=== PATIENT | male | born 1995 | race Caucasian/White ===

== ENCOUNTER 2018-10-23 15:02 | Day surgery (SDC) | payer BC, OTHER ==
[2018-10-23] MEDS ORDERED: Lactated Ringers 1,000 ML IV SCH (17:00)
--- NOTE | 2018-10-23 17:00 | PCM.PREANE ---
Preanesthetic Assessment - Anesthesia/Transfusion/Family Hx Anesthesia History: Prior Anesthesia Without Reaction Family History of Anesthesia Reaction: No Transfusion History: No Prior Transfusion(s) Intubation History: Unknown - Review of Systems General: No Symptoms Pulmonary: No Symptoms (Asthma no inhalers since age of 14./ETOH on weekends) Cardiovascular: No Symptoms Gastrointestinal: No Symptoms, Nausea Neurological: No Symptoms Other: Reports: Sinus Problem (seasonal allergies) - Physical Assessment NPO Status Date: 10/22/18 NPO Status Time: 20:00 Pulse: 60 O2 Sat by Pulse Oximetry: 99 Respiratory Rate: 16 Blood Pressure: 144/87 Temperature: 35.8 C Vital Signs: Last Vital Signs Temp 35.8 C 10/23/18 15:41 Pulse 60 10/23/18 15:41 Resp 16 10/23/18 15:41 BP 144/87 H 10/23/18 15:41 Pulse Ox 99 10/23/18 15:41 Height: 1.83 m Weight: 80.739 kg ASA Class: 1E Mental Status: Alert & Oriented x3 Airway Class: Mallampati = 2 Dentition: Reports: Normal Dentition, Caries Thyro-Mental Finger Breadths: 3 Mouth Opening Finger Breadths: 3 ROM/Head Extension: Full Lungs: Clear to Auscultation, Normal Respiratory Effort Cardiovascular: Regular Rate, Regular Rhythm, No Murmurs - Allergies Allergies/Adverse Reactions: Allergies Allergy/AdvReac Type Severity Reaction Status Date / Time Penicillins Allergy Hives Verified 10/23/18 15:43 - Anesthesia Plan Pre-Op Medication Ordered: None - Acknowledgements Anesthesia Type Planned: General Anesthesia Pt an Appropriate Candidate for the Planned Anesthesia: Yes Alternatives and Risks of Anesthesia Discussed w Pt/Guardian: Yes Pt/Guardian Understands and Agrees with Anesthesia Plan: Yes PreAnesthesia Questionnaire - Past Health History Medical/Surgical History: Denies Medical/Surgical History - SUBSTANCE USE Smoking Status *Q: Never Smoker Second Hand Smoke Exposure: No Recreational Drug Use History: No - HOME MEDS Home Medications: Home Meds Cetirizine [ZyrTEC] 10 mg PO DAILY PRN 10/23/18 [History]
[2018-10-23] MEDS ORDERED: Succinylcholine/Normal Saline 100 MG/5 ML Syringe ONE (17:12)
[2018-10-23] MEDS ORDERED: Ketorolac 30 MG/ML SDV ONE (17:12)
[2018-10-23] MEDS ORDERED: Ondansetron 4 MG/2 ML SDV ONE (17:12)
[2018-10-23] MEDS ORDERED: Lactated Ringers 1,000 ML ONE (17:12)
[2018-10-23] MEDS ORDERED: HYDROmorphone 0.5 MG/0.5 ML Syringe ONE (17:12)
[2018-10-23] MEDS ORDERED: Dexamethasone 4 MG/ML 5 ML MDV ONE (17:12)
[2018-10-23] MEDS ORDERED: Lidocaine 1% 6 ML ONE (17:12)
[2018-10-23] MEDS ORDERED: Rocuronium 50 MG/5 ML Vial ONE (17:12)
[2018-10-23] MEDS ORDERED: Midazolam 1 MG/ML 2 ML SDV ONE (17:13)
[2018-10-23] MEDS ORDERED: fentaNYL 250 MCG/5 ML SDV ONE (17:13)
[2018-10-23] MEDS ORDERED: Propofol 200 MG/20 ML SDV ONE (17:13)
[2018-10-23] MEDS ORDERED: Bupivacaine 0.5% 30 ML SDV ONE (17:26)
[2018-10-23] MEDS ORDERED: Albuterol 0.083% 2.5 MG/3 ML Neb Soln NEB PRN (18:10)
[2018-10-23] MEDS ORDERED: HYDROmorphone 0.5 MG/0.5 ML Syringe IVPUSH PRN (18:10)
[2018-10-23] MEDS ORDERED: Ondansetron 4 MG/2 ML SDV IVPUSH PRN (18:10)
[2018-10-23] MEDS ORDERED: ePHEDrine 50 MG/ML SDV IVPUSH PRN (18:10)
[2018-10-23] MEDS ORDERED: diphenhydrAMINE 50 MG/ML SDV IVPUSH PRN (18:10)
[2018-10-23] MEDS ORDERED: Neostigmine Methylsulfate 1 MG/ML 5 ML Syringe ONE (18:14)
[2018-10-23] MEDS ORDERED: Phenylephrine 1 MG in Sodium Chloride 0.9% 10 ML IV SCH (18:15)
[2018-10-23] MEDS ORDERED: Morphine 2 MG/ML Syringe IVPUSH PRN (18:48)
[2018-10-23] MEDS ORDERED: oxyCODONE 5 MG Tab PO PRN (18:50)
[2018-10-23] MEDS ORDERED: Ibuprofen 800 MG Tab PO PRN (18:51)
[2018-10-23] MEDS ORDERED: Enoxaparin 40 MG/0.4 ML Syringe SUBCUT ONE (18:51)
[2018-10-23] MEDS ORDERED: Loratadine 10 MG Tab PO PRN (18:53)
[2018-10-23] MEDS ORDERED: D5 1/2 NS w/ 10 mEq/L KCl 1,000 ML IV SCH (19:00)
[2018-10-23] MEDS: fentaNYL 100 MCG/2 ML SDV IVPUSH PRN ×2 (19:10→19:36)
--- NOTE | 2018-10-23 19:12 | PCM.POSTAN ---
POST ANESTHESIA ASSESSMENT - MENTAL STATUS Mental Status: Alert - VITAL SIGNS Pulse Rate: 90 SaO2: 98 Resp Rate: 16 Blood Pressure: 134/64 Temperature: 36.6 C - RESPIRATORY Respiratory Status: Respiratory Rate WNL, Airway Patent, O2 Saturation Stable - CARDIOVASCULAR CV Status: Pulse Rate WNL, Blood Pressure Stable - GASTROINTESTINAL GI Status: No Symptoms - POST OP HYDRATION Hydration Status: Adequate & Stable
--- NOTE | 2018-10-23 19:14 | PCM48HPAN ---
Post Anesthesia Note - EVALUATION WITHIN 48HRS OF ANESTHETIC Vital Signs in Normal Range: Yes Patient Participated in Evaluation: Yes Respiratory Function Stable: Yes Airway Patent: Yes Cardiovascular Function Stable: Yes Hydration Status Stable: Yes Pain Control Satisfactory: Yes Nausea and Vomiting Control Satisfactory: Yes Mental Status Recovered: Yes
--- NOTE | 2018-10-23 23:28 | HP ---
DATE OF ADMISSION: 10/23/2018 ADMITTING DIAGNOSIS: Acute appendicitis with localized peritonitis. HISTORY OF PRESENT ILLNESS: The patient is a 23-year-old male who was in his normal state of health up until Friday, three days ago when he developed generalized abdominal pain. This seems to have settled in the right lower quadrant. It is worsened by ambulation. He rates the pain at 7/10 in intensity. He denies any shaking chills, fever, nausea, vomiting, diarrhea, constipation, bloody stools. His only other complaint was anorexia. He had no appetite this morning. His last meal was last night. He has only had sips of clear liquids this morning, cefoxitin 2 g. The patient presented to the ED this morning around 11 o'clock over in [place]. He was worked up across the street. He had no leukocytosis. His labs were quite unremarkable. However, his persistent pain prompted a CT scan. Surprisingly, the CT demonstrated acute appendicitis with [id number]-ic-[id number] appendiceal enlargement at 1.3 cm and mild diffuse wall thickening and surrounding periappendiceal inflammation laterally. There is no evidence of rupture, although suggests acute appendicitis with localized peritonitis. I was notified of the diagnosis and the existence of the patient by the [facility]. He was transferred over at my request for higher level of care. The patient does not appear toxic. PAST MEDICAL HISTORY: Seasonal allergies. PAST SURGICAL HISTORY: None. ALLERGIES: To medications, none. CURRENT MEDICATIONS: He takes Zyrtec 10 mg p.o. daily for seasonal allergies. REVIEW OF SYSTEMS: A 10-system review is completely negative. He is otherwise completely healthy young man who plays football. FAMILY HISTORY: Notable for a blood dyscrasia in a second-degree relative, hypertension, and diabetes. PHYSICAL EXAMINATION: GENERAL: He is alert. He does not appear toxic, in no obvious distress. VITAL SIGNS: Here are within normal limits. HEAD AND NECK: Normocephalic, atraumatic. He is anicteric. LUNGS: Clear to auscultation bilaterally. HEART: Regular rate and rhythm. No clicks, murmurs, or rubs. ABDOMEN: Soft. He has mild tenderness in the right lower quadrant with a negative Rovsing sign. Negative Psoas sign. Negative obturator sign. No hernias. No palpable masses. EXTREMITIES: No clubbing, cyanosis, or edema. No calf tenderness. INTEGUMENT: No rashes. No lesions. No petechiae. No diaphoresis. NEUROLOGIC: Cranial nerves are grossly intact. Nonfocal. Moving all 4 extremities with sensation is preserved. PSYCHIATRIC: He has appropriate affect and demeanor. LABORATORY DATA: His lab work showed no leukocytosis with a white cell count of 6500, hemoglobin , platelets 256, and his differential appears normal. Chemistries are all completely within normal limits. I did look at his CT report. I unfortunately could not view the scan. This does demonstrate a thickened inflamed appendix measuring 1.3 cm with periappendiceal fat stranding all consistent with acute appendicitis with periappendiceal inflammation consistent with a localized peritonitis. ASSESSMENT: Acute appendicitis with localized peritonitis. PLAN: I have discussed with him at length the major risks, benefits, and alternative of an appendectomy. I have offered him a laparoscopic appendectomy with the possibility of an open procedure. Risks include, but are not limited to, perforation of the bowel, bleeding, risks of anesthesia, possibly further surgery, staple line failure, abscess formation, reoperation, hernias of the port sites, and many others. He gave informed consent. MMODAL /[id number]
--- NOTE | 2018-10-23 23:52 | OR ---
DATE OF OPERATION: 10/23/2018 SURGEON: Gavin Ibarra MD PREOPERATIVE DIAGNOSIS: Acute appendicitis with localized peritonitis. POSTOPERATIVE DIAGNOSIS: Acute appendicitis with localized peritonitis. OPERATION PERFORMED: Laparoscopic appendectomy. COMPLICATIONS: None. ESTIMATED BLOOD LOSS: Less than 5 mL. FINDINGS: He had a distended thickened inflamed appendix with localized peritonitis consistent with acute appendicitis with localized peritonitis. No other pathology was identified. PATHOLOGY: Appendix. ANESTHESIA: General with endotracheal intubation. DISPOSITION: Stable at the end of procedure. INDICATION: The patient is a 23-year-old male who presented with acute appendicitis. He had a workup over in [place], was transferred here. He got a dose of preoperative antibiotics. A thorough discussion was held regarding the risks, benefits, and alternatives. He gave informed consent to what was done. DESCRIPTION OF PROCEDURE: The patient was brought to the operating room, placed in a supine position on the operating table. He was given general anesthesia and intubated. The abdomen was prepped and draped in usual sterile fashion. A Veress needle was inserted in the left upper quadrant and abdominal insufflation was undertaken to a pressure of 15 mmHg with CO2 gas. I introduced a 12 mm optical port in the left lower quadrant. I visualized the tissue planes as the port passed into the peritoneum. There was no contact to underlying bowel. A 5 mm 30-degree scope was used for the purpose of inserting the port and for the operation. I identified the Veress needle in the left upper quadrant with no contact to underlying bowel. This was removed. The gas was switched to the existing port. I passed 2 additional 5 mm ports, one in the suprapubic region and one in the umbilicus in Trendelenburg position with the right side up, identified the appendix. The appendix was obviously inflamed as noted above. A window was created in the mesoappendix and a linear cutter stapler was passed through the mesoappendix to transect the appendix at its exit from the cecum. The appendiceal artery and the mesoappendix were controlled between surgical clips and then transected. At this point, the appendix was placed in an EndoCatch bag and retrieved through the 12 mm port site inside the bag. I then changed my gloves. I then passed a 0 Vicryl stitch across the port with a KaciAlem stitch passer under direct laparoscopic visualization. This completely obliterated the fascial defect at that location. I inspected the pelvis and found no purulence. The right lower quadrant was inspected. There was no bleeding. The staple line was intact and the clips were still in place obstructing the mesoappendix. There was an essentially no blood in the operative field. All the ports were opened. The ports were used to desufflate the gas and then finally the ports were removed. Each of the incisions was reapproximated with 4-0 Monocryl suture material. Dermabond was applied for sterile barrier. He had no complications and tolerated the procedure well. He was awakened from anesthesia and moved back to recovery in stable condition. PLAN: This will constitute his discharge summary. He will be kept for several hours for extended stay observation and then discharged when his pain medication is no longer required, and he can tolerate his pain just with p.o. Tylenol or ibuprofen, and he is ambulating and tolerating regular food. ALLAN /[id number]
[2018-10-24] MEDS: Acetaminophen 325 MG Tab PO PRN ×2 (01:58→08:58)
== END 2018-10-24 09:06 | disposition home or self-care (01) ==
LOC: JD.ED 15:02 → JD.SDS 17:19 → JD.MS 21:00 → JD.SDS 10-24 09:06
PROVIDERS: ATTEND Surgery
DX: K35.30 Acute appendicitis with localized peritonitis, without perforation or gangrene (principal); J45.909 Unspecified asthma, uncomplicated; Z88.0 Allergy status to penicillin; Z79.899 Other long term (current) drug therapy
CPT/HCPCS: 44970; 99284; A9270; J0330; J0694; J1100; J1170; J1650; J1885; J2001; J2250; J2270; J2405; J2704; J2710; J3010; J3480; J3490; J7120; 00840

== ENCOUNTER 2018-11-11 08:33 | Emergency (ER) | payer BC, OTHER ==
--- NOTE | 2018-11-11 09:33 | EDM.PDOC ---
ED HPI GENERAL MEDICAL PROBLEM - General Chief Complaint: Abdominal Pain Stated Complaint: ABDOMINAL PAIN,VOMITIING POST APPENDIX REMOVAL Time Seen by Provider: 11/11/18 09:28 Source of Information: Reports: Patient, Family History Limitations: Reports: No Limitations - History of Present Illness INITIAL COMMENTS - FREE TEXT/NARRATIVE: 23-year-old male presents to the ED with acute onset of periumbilical abdominal cramping pain this morning. States he got up around 5:30 to go to work 8 some toast and some food snacks and had some fluids and felt good. Work and was on the more when he started developed severe periumbilical abdominal pain to the point that it forced him to stop working. He then vomited 2 lost his breakfast and bilious emesis 1. No hematemesis. Pain was strongly colicky or coming and going and is now much improved compared to what it was. He had his appendix out about 2 weeks ago laparoscopically and states his bowel function seemed to return to normal. He has not been using any pain medication for about one week. No previous abdominal surgery. No fever no chills. Onset: Today Onset Date: 11/11/18 Onset Time: 07:45 Duration: Minutes: Location: Reports: Abdomen (Diffuse periumbilical cramping pain.) Quality: Reports: Sharp, Stabbing, Other Severity: Severe (Strong colicky component to the pain.) Improves with: Reports: Other (Improves spontaneously perhaps better after vomiting.) Worsens with: Reports: None Context: Reports: Other (Spontaneous occurrence while working this morning.). Denies: Activity, Exercise, Lifting, Sick Contact, Trauma Associated Symptoms: Reports: Loss of Appetite, Nausea/Vomiting, Weakness, Other. 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 Off pain medication for one week) Social & Family History - Caffeine Use Caffeine Use: Reports: None - Living Situation & Occupation Living situation: Reports: Single Occupation: Employed ED ROS GENERAL - Review of Systems Review Of Systems: See Below Constitutional: Reports: Decreased Appetite. Denies: Fever, Chills, Malaise, Weakness, Fatigue, Weight Loss HEENT: Reports: No Symptoms (At present but he ate a normal breakfast.) Respiratory: Reports: No Symptoms Cardiovascular: Reports: No Symptoms Endocrine: Reports: No Symptoms GI/Abdominal: Reports: Abdominal Pain (See history of present illness.), Nausea , Vomiting : Reports: No Symptoms (Vomited 2 this morning due to the intensity of the abdominal pain.) Musculoskeletal: Reports: No Symptoms Skin: Reports: No Symptoms Neurological: Reports: Dizziness (Coy dizzy and lightheaded and near syncope when the pain was very intense.) Psychiatric: Reports: No Symptoms Hematologic/Lymphatic: Reports: No Symptoms Immunologic: Reports: No Symptoms ED EXAM, GI/ABD - Physical Exam Exam: See Below Exam Limited By: No Limitations General Appearance: Alert, WD/WN, Mild Distress Eyes: Bilateral: Normal Appearance (No sclerae icterus. No pallor) Throat/Mouth: Normal Inspection, Normal Lips, Normal Teeth, Normal Oropharynx Neck: Normal Inspection, Supple, Non-Tender, Full Range of Motion. No: Lymphadenopathy (R) Respiratory/Chest: No Respiratory Distress, Lungs Clear, Normal Breath Sounds, No Accessory Muscle Use, Chest Non-Tender Cardiovascular: Normal Peripheral Pulses, Regular Rate, Rhythm, No Edema, No Gallop, No Murmur, No Rub GI/Abdominal Exam: Soft, Non-Tender, No Organomegaly, No Abnormal Bruit, No Mass , Pelvis Stable (I believe I can palpate his right hemicolon and left hemicolon and rolled him on exam.), Abnormal Bowel Sounds (Bowel sounds are mildly hyperactive throughout the abdomen.), Other (Abdominal wall is firm as he is well muscled. Appendectomy wounds have healed well. No signs of infection.) (Male) Exam: No Hernia Back Exam: Normal Inspection, Full Range of Motion. No: CVA Tenderness (L), CVA Tenderness (R) Extremities: Normal Inspection, Normal Range of Motion, Non-Tender Neurological: Alert, Oriented, CN II-XII Intact, Normal Cognition, Normal Gait Psychiatric: Normal Affect, Normal Mood Skin Exam: Warm, Dry, Intact, Normal Color, No Rash Course - Vital Signs Last Recorded V/S: Last Vital Signs Temp 36.8 C 11/11/18 08:50 Pulse 63 11/11/18 08:50 Resp 16 11/11/18 08:50 BP 134/77 11/11/18 08:50 Pulse Ox 98 11/11/18 08:50 - Orders/Labs/Meds Meds: Medications Discontinued Medications Generic Name Dose Route Start Last Admin Trade Name Hakeem PRN Reason Stop Dose Admin Dicyclomine HCl 20 mg 11/11/18 10:10 11/11/18 10:28 Bentyl PO 11/11/18 10:11 20 mg ONETIME ONE Administration Magnesium Citrate 210 ml 11/11/18 10:09 11/11/18 10:28 Citrate Of Magnesia PO 11/11/18 10:10 210 ml ONETIME ONE Administration - Radiology Interpretation Free Text/Narrative:: 23-year-old male presents to the ED with acute onset of diffuse periumbilical abdominal pain. Nausea and vomiting 2 this morning. When he woke this morning he felt fine. He had a normal breakfast for him. He was at work when he developed severe periumbilical cramping pain that precipitated the nausea and vomiting. States the pain for a while was an 8-9 minutes 10 is now up. He reports pain is down to 1 or 2 at the time my examination. Exam reveals a benign abdomen with very active bowel sounds in all 4 quadrants. Appendectomy wounds done 2 weeks ago are healing well. I believe I can palpate both the right and left hemicolon. Suspect constipation from narcotic pain medication and then being off food for a period of time. Plan KUB to be done. - Re-Assessments/Exams Free Text/Narrative Re-Assessment/Exam: 11/11/18 09:49 KUB confirms clinical suspicion of constipation. There is increased stool throughout the right hemicolon the transverse colon in the upper descending colon. The rectal vault itself is fairly empty. Plan I will have him take 7 ounces of magnesium citrate with 6 ounces of juice by mouth to provide bowel cleanse. Anus started to come back a bit. I will give him Bentyl 20 mg by mouth to help alleviate abdominal cramping pain. He will be excused from work for the rest of the day and in no will be given in this regard. He eat and drink per normal. Departure - Departure Time of Disposition: 10:10 Disposition: Home, Self-Care 01 Condition: Fair Clinical Impression: Constipation by delayed colonic transit Abdominal pain Qualifiers: Abdominal location: periumbilical Qualified Code(s): R10.33 - Periumbilical pain - Discharge Information *PRESCRIPTION DRUG MONITORING PROGRAM REVIEWED*: Not Applicable *COPY OF PRESCRIPTION DRUG MONITORING REPORT IN PATIENT EDU: Not Applicable Instructions: Constipation, Adult Referrals: PCP,None [Primary Care Provider] - Forms: ED Department Discharge, ED Return to Work/School Form Additional Instructions: Evaluation the emergency room this morning in regards to development of severe periumbilical abdominal cramping pain this morning while at work. Pain is eased up a good deal by the time you were seen in the ED. However the pain was bad enough to precipitate nausea and vomiting 2 this morning. Appendectomy was performed 2 weeks ago. Examination reveals quite active bowel sounds in all 4 quadrants with palpable right and left hemicolon is on exam. X-ray of the abdomen confirms suspicion of constipation primarily involving the upper portion of the right colon the transverse colon which runs across the upper midabdomen and parts of the lower colon. Likely occurred due to illness with recent appendicitis and then not eating well for a period of time and plus using pain medication after surgery. Treatment in the ED was Bentyl 20 mg by mouth to help alleviate further cramping abdominal pain. Require bowel cleanse. Suggest use of magnesium citrate or Citroma 7 ounces of medication mixed with 5- 6 ounces of juice of choice such as Gatorade or Powerade taken by mouth once. This will usually start to work in 1-2 hours her bowels will usually move 3 or 4 times cleansing the bowel. May eat and drink per normal. Bowel cleanse should relieve abdominal pain completely. Off work the remainder today.
[2018-11-11] MEDS ORDERED: Magnesium Citrate Solution 296 ML Bottle PO ONE (10:09)
[2018-11-11] MEDS ORDERED: Dicyclomine 10 MG Cap PO ONE (10:10)
--- NOTE | 2018-11-11 10:30 | CR ---
Abdomen: Supine view of the abdomen was obtained. Comparison: No previous study. Surgical material is seen within the right mid abdomen. Minimal increased stool is seen within the colon. Bowel gas pattern is otherwise unremarkable. Bony structures appear within normal limits for the patient's age. Impression 1. Slight increased stool within the colon. Nothing acute is seen. Diagnostic code #2
== END 2018-11-11 10:29 | disposition home or self-care (01) ==
LOC: JD.ED 08:33
DX: K59.01 Slow transit constipation (principal); Z79.899 Other long term (current) drug therapy; Z88.0 Allergy status to penicillin
CPT/HCPCS: 74018; 99284; A9270

== ENCOUNTER 2018-11-30 17:03 | Emergency (ER) | payer BC, OTHER ==
--- NOTE | 2018-11-30 17:49 | EDM.PDOC ---
ED HPI GENERAL MEDICAL PROBLEM - General Chief Complaint: Gastrointestinal Problem Stated Complaint: RECTAL BLEEDING Time Seen by Provider: 11/30/18 17:47 - History of Present Illness INITIAL COMMENTS - FREE TEXT/NARRATIVE: 23-year-old male presents emergency room with rectal bleeding. The patient noticed this earlier this afternoon after having a BM. Patient noted some bright red blood in the toilet. Stool was normal consistency and color. Patient denies any recent constipation. Patient denies any abdominal pain. He has no history of hemorrhoids. - Related Data Allergies Allergy/AdvReac Type Severity Reaction Status Date / Time Penicillins Allergy Hives Verified 11/30/18 17:17 Home Meds: Home Meds Cetirizine [ZyrTEC] 10 mg PO DAILY PRN 10/23/18 [History] Past Medical History - Past Health History Medical/Surgical History: Denies Medical/Surgical History - Past Surgical History GI Surgical History: Reports: Appendectomy Social & Family History - Tobacco Use Smoking Status *Q: Never Smoker - Caffeine Use Caffeine Use: Reports: None - Recreational Drug Use Recreational Drug Use: No - Living Situation & Occupation Living situation: Reports: Single Occupation: Employed ED ROS GENERAL - Review of Systems Review Of Systems: See Below Constitutional: Reports: No Symptoms HEENT: Reports: No Symptoms Respiratory: Reports: No Symptoms Cardiovascular: Reports: No Symptoms GI/Abdominal: Denies: Abdominal Pain, Constipation, Nausea, Vomiting : Reports: No Symptoms ED EXAM, GI/ABD - Physical Exam Exam: See Below Exam Limited By: No Limitations General Appearance: Alert, No Apparent Distress Respiratory/Chest: No Respiratory Distress, Lungs Clear, Normal Breath Sounds Cardiovascular: Normal Peripheral Pulses, Regular Rate, Rhythm, No Edema GI/Abdominal Exam: Normal Bowel Sounds, Soft, Non-Tender, No Distention, No Mass Rectal (Males) Exam: Other (Stool is weakly Hemoccult positive on rectal exam the patient has no external or internal hemorrhoids he has a fissure at the most anterior-inferior position. No other abnormalities noted. The fissure seems to be somewhat superficial but clearly palpable.) Neurological: Alert, Oriented, Normal Cognition Course - Vital Signs Last Recorded V/S: Last Vital Signs Temp 36.7 C 11/30/18 17:13 Pulse 65 11/30/18 17:13 Resp 19 11/30/18 17:13 BP 143/85 H 11/30/18 17:13 Pulse Ox 98 11/30/18 17:13 Departure - Departure Time of Disposition: 18:51 Disposition: Home, Self-Care 01 Clinical Impression: Rectal fissure - Discharge Information Instructions: Anal Fissure, Adult Referrals: PCP,None [Primary Care Provider] - Forms: ED Department Discharge Additional Instructions: Return to emergency room if any questions problems worsening symptoms. 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 Uses for one to 2 weeks. Follow-up in the Hospital clinic for recheck in one week if needed
== END 2018-11-30 19:01 | disposition home or self-care (01) ==
LOC: JD.ED 17:03
DX: K60.2 Anal fissure, unspecified (principal); Z88.0 Allergy status to penicillin; Z79.899 Other long term (current) drug therapy
CPT/HCPCS: 99282; 99283